=== PATIENT | female | born 1980 | race African-American/Black ===

== ENCOUNTER 2022-01-26 21:09 | Emergency (ER) | payer OTHER ==
[2022-01-26 21:22] VITALS: TEMP 98.4; BMI 28.8
[2022-01-27 02:33] LABS: BASO % 1.1 % (0-2.0); EOS % 2.4 % (0-4.5); HEMATOCRIT 34.6 % (32.4-45.2); HEMOGLOBIN 11.9 GM/dL (10.7-15.3); LYMPH % 49.8 % (8-40); MCH 29.5 pg (25.7-33.7); MCHC 34.4 g/dl (32.0-36.0); MEAN CELL VOLUME 85.8 fl (80-96); MEAN PLT VOLUME 7.2 fl (7.5-11.1); MONO % 14.2 % (3.8-10.2); NEUT % 32.5 % (42.8-82.8); PLATELET COUNT 341 10^3/uL (134-434); RBC 4.04 M/mm3 (3.60-5.2); RDW 16.8 % (11.6-15.6)
[2022-01-27 02:38] LABS: INR 1.09 (0.83-1.09); PROTHROMBIN TIME (PATIENT) 12.5 SEC (9.7-13.0)
[2022-01-27 02:41] LABS: ACTIVATED PTT 37.8 SECONDS (25.2-36.5)
[2022-01-27] MEDS ORDERED: ACETAMINOPHEN 500 MG TABLET (FP) PO ONE (02:42)
[2022-01-27] MEDS ORDERED: ACETAMINOPHEN 325 MG TABLET (FP) ONE (02:42)
[2022-01-27 02:44] LABS: CALCIUM 8.4 mg/dL (8.5-10.1)
[2022-01-27 02:45] LABS: ALBUMIN 3.4 g/dl (3.4-5.0); BLOOD UREA NITROGEN 12.8 mg/dL (7-18)
[2022-01-27 02:48] LABS: CREATININE 0.8 mg/dL (0.55-1.3)
[2022-01-27 02:50] LABS: BILIRUBIN,TOTAL 0.3 mg/dL (0.2-1); TOT PROT 7.4 g/dl (6.4-8.2)
[2022-01-27 05:18] VITALS: BP 119/78; PULSE 77
== END 2022-01-27 05:18 | disposition home or self-care (01) ==
LOC: JER 21:09 → JERFT 21:09 → JER 01-27 05:18
DX: R55 Syncope and collapse (principal); R51.9 Headache, unspecified
CPT/HCPCS: 36415; 70450-TC; 80053; 84484; 84703; 85025; 85610; 85730; 93005; 93010; 99285-25